=== PATIENT | female | born 1985 | race American Indian/Alaskan Native ===

== ENCOUNTER 2017-05-13 19:48 | Emergency (ER) | payer OTHER ==
[2017-05-13 20:34] VITALS: BP 161/105
--- NOTE | 2017-05-13 20:39 | Emergency Department Report ---
ED Syncope HPI - General Chief Complaint: Syncope Stated Complaint: SYNCOPAL EPISODE Time Seen by Provider: 05/13/17 20:39 Source: patient, family Exam Limitations: no limitations - History of Present Illness Initial Comments: Has a history of chronic migraines, has been recently diagnosed with a sinus infection and bilateral ear infections, has multiple medical problems per history, started to have a migraine today, has not improved. EMS did come to her home due to suspected syncopal episodes associated with her migraines. She reports that she was at [facility] recently for the same symptoms and was given IV fluids and medications and this helped her. Admits to N, V x2. Timing/Prior Episodes: single episode today Precipitating Factors: Positive: none Loss of Consciousness: no loss of consciousness Current Symptoms: headache, lightheadedness, nausea, weakness - Related Data Allergies/Adverse Reactions: Allergies acetaminophen [From Percocet] Allergy (Verified 05/13/17 20:43) Hives chocolate flavor Allergy (Verified 05/13/17 20:43) Hives haloperidol [From Haldol] Allergy (Verified 05/13/17 20:43) Hives nut - unspecified Allergy (Verified 05/13/17 20:43) Hives oxycodone [From Percocet] Allergy (Verified 05/13/17 20:43) Hives shellfish derived Allergy (Verified 05/13/17 20:43) Hives Home Medications: Ambulatory Orders Promethazine [Phenergan TAB] 25 mg PO Q6HR PRN #30 tab 05/14/17 ED Review of Systems ROS: Stated complaint: SYNCOPAL EPISODE Other details as noted in HPI Comment: All other systems reviewed and negative Constitutional: weakness Eyes: eye pain ENT: ear pain Respiratory: cough Cardiovascular: as per HPI Endocrine: no symptoms reported Gastrointestinal: as per HPI, nausea, vomiting Genitourinary: as per HPI Musculoskeletal: as per HPI Skin: as per HPI Neurological: as per HPI, headache Psychiatric: as per HPI Hematological/Lymphatic: as per HPI ED Past Medical Hx - Social History Substance Use Type: None - Medications Home Medications: Home Medications Medication Instructions Recorded Confirmed Last Taken Type Promethazine [Phenergan TAB] 25 mg PO Q6HR PRN #30 tab 05/14/17 Unknown Rx ED Physical Exam - General Limitations: No Limitations General appearance: alert - Head Head exam: Present: atraumatic - Eye Eye exam: Present: normal appearance, PERRL, EOMI - ENT ENT exam: Present: normal exam - Neck Neck exam: Present: normal inspection - Respiratory Respiratory exam: Present: normal lung sounds bilaterally. Absent: respiratory distress, wheezes - Cardiovascular Cardiovascular Exam: Present: regular rate, normal rhythm - GI/Abdominal GI/Abdominal exam: Present: soft, normal bowel sounds - Rectal Rectal exam: Present: deferred - Extremities Exam Extremities exam: Present: normal inspection - Back Exam Back exam: Present: normal inspection - Neurological Exam Neurological exam: Present: alert, oriented X3 - Psychiatric Psychiatric exam: Present: normal affect - Skin Skin exam: Present: warm, dry, intact ED Course Vital Signs 05/13/17 05/13/17 20:26 22:13 Temperature 99.2 F Pulse Rate 84 Respiratory 16 20 Rate Blood Pressure 161/105 Blood Pressure 161/105 [Right] O2 Sat by Pulse 99 Oximetry - Reevaluation(s) Reevaluation #1: 05/14/17 01:02 Gave fluids, dilaudid, phenergan. 05/14/17 01:46 Re-evaluated, she does feel better, but still has some pain. Will give some more dilaudid, and Rx for phenergan. Offered to admit, she preferred to not do this. ED Medical Decision Making - Lab Data Result diagrams: 05/13/17 21:19 05/13/17 21:19 Critical care attestation.: If time is entered above; I have spent that time in minutes in the direct care of this critically ill patient, excluding procedure time. ED Disposition Clinical Impression: Migraine aura, persistent, with status migrainosus Disposition: -01 TO HOME OR SELFCARE Is pt being admited?: No Does the pt Need Aspirin: No Condition: Stable Instructions: Migraine Headache (ED) Additional Instructions: Rest, fluids, follow up with your doctor, return as needed, take medications as directed. Prescriptions: Promethazine [Phenergan TAB] 25 mg PO Q6HR PRN #30 tab PRN Reason: Nausea Referrals: MART FELIZ MD [Primary Care Provider] - 3-5 Days
[2017-05-13 21:44] LABS: Basophils % (Auto) 0.4 % (0.0-1.8); Eosinophils # (Auto) 0.1 K/mm3 (0.0-0.4); Eosinophils % (Auto) 1.3 % (0.0-4.3); Hematocrit 35.4 % (30.3-42.9); Hemoglobin 11.6 gm/dl (10.1-14.3); Lymphocytes # (Auto) 1.7 K/mm3 (1.2-5.4); Lymphocytes % (Auto) 26.1 % (13.4-35.0); Mean Corpuscular HGB Conc 33 % (30-34); Mean Corpuscular Hemoglobin 28 pg (28-32); Mean Corpuscular Volume 87 fl (79-97); Monocytes # (Auto) 0.5 K/mm3 (0.0-0.8); Monocytes % (Auto) 7.4 % (0.0-7.3); Platelet Count 339 K/mm3 (140-440); Red Blood Count 4.07 M/mm3 (3.65-5.03); Red Cell Distribution Width 13.7 % (13.2-15.2)
[2017-05-13 21:57] LABS: Alanine Aminotransferase 13 units/L (7-56); Albumin 4.1 g/dL (3.9-5); BUN/Creatinine Ratio 15; Blood Urea Nitrogen 9 mg/dL (7-17); Hemolysis Index 8
[2017-05-13 21:58] LABS: Creatine Kinase MB < 1.0 ng/mL (0.0-4.0)
[2017-05-13] MEDS ORDERED: NACL 0.9% 1000 ML 1,000 ML IV ONE (22:56)
[2017-05-13] MEDS ORDERED: DILAUDID IV ONE (22:58)
[2017-05-13] MEDS ORDERED: PHENERGAN PO ONE (23:00)
[2017-05-14] MEDS ORDERED: ZOFRAN IV ONE (01:30)
[2017-05-14] MEDS ORDERED: ZOFRAN ONE (01:32)
[2017-05-14] MEDS ORDERED: DILAUDID IV ONE (01:46)
== END 2017-05-14 02:45 | disposition home or self-care (01) ==
LOC: ED 19:48
DX: G43.109 Migraine with aura, not intractable, without status migrainosus (principal)
CPT/HCPCS: 36415; 80053; 82550; 82553; 83735; 84484; 85025; 93005; 93010; 96361; 96374; 96375; 96376; 99284; J1170; J2405; J7030; Q0169

== ENCOUNTER 2018-11-28 16:44 | Inpatient (IN) | payer OTHER ==
--- NOTE | 2018-11-28 17:00 | Emergency Department Report ---
Blank Doc - Documentation Documentation: This is a 33-year-old female that presents with headache, bilateral weakness. Exam: normal strength to bilateral. no one sided weakness. No stroke symptoms or signs upon exam. This initial assessment/diagnostic orders/clinical plan/treatment(s) is/are subject to change based on patient's health status, clinical progression and re- assessment by fellow clinical providers in the ED. Further treatment and workup at subsequent clinical providers discretion. Patient/guardians urged not to elope from the ED as their condition may be serious if not clinically assessed and managed. Initial orders include: 1- Patient sent to [facility] for further evaluation and treatment 2- labs 3- CT head
--- NOTE | 2018-11-28 17:07 | Emergency Department Report ---
ED General Adult HPI - General Chief complaint: Neuro Symptoms/Deficit Stated complaint: MIGRAINE/NUMBNESS RT SIDE/DIZZY Time Seen by Provider: 11/28/18 16:50 Source: patient, RN notes reviewed, old records reviewed Mode of arrival: Ambulatory Limitations: No Limitations - History of Present Illness Initial comments: This is a 33-year-old female. The patient is not known to this provider previously. She states that she typically follows at the [facility]. He reports a history of antiphospholipid antibody syndrome, on permanent anticoagulation, Lovenox, reports a history of stroke, and 2018, 2017, and also reports a history of chronic migraines. The patient works as a schoolteacher. She states that she is not . She endorses compliance with her Lovenox therapy. She indicates that she stick and Lovenox within the past 12 hours. The patient presents to the ER with a complaint of nontraumatic nonsudden, non-thunderclap headache, occipital, started at approximately 1:00 PM, throbbing in nature, gradually but persistently getting worse, also with a complaint of right-sided facial numbness, V2 V3, right shou lder numbness, and dizziness. The patient reports a fever this morning of 102.3. She denies abdominal pain. She denies chest pain. She denies shortness of breath. She denies urinary symptoms. She denies extremity weakness. She states this feels like her typical chronic complex migraine. However, because of her complaint of numbness, a code stroke was called by nursing team, as per their discretion. In addition, the patient was noted to be walking with a slight limp with her right leg, as per verbal report. 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 -: Gradual Location: head, face, right, upper extremity Quality: aching Consistency: constant Improves with: none Worsens with: none - Related Data Home Medications Medication Instructions Recorded Confirmed Last Taken Aspirin 81 mg PO DAILY 11/28/18 11/28/18 11/28/18 Flonase 1 spray INTRANASAL DAILY 11/28/18 11/28/18 11/28/18 23:00 Lisinopril 5 mg PO DAILY 11/28/18 11/28/18 11/28/18 Lovenox 70 mg SUB-Q BID 11/28/18 11/28/18 11/28/18 Zyrtec 10mg tab 10 mg PO DAILY 11/28/18 11/28/18 11/28/18 metFORMIN 750 mg PO DAILY 11/28/18 11/28/18 11/28/18 Previous Rx's Medication Instructions Recorded Last Taken Type Butalb/Acetamin/Caff 50-325-40 1 each PO Q4H PRN #24 tablet 12/02/18 Unknown Rx [Fioricet 50-325-40] Gabapentin 300 mg PO TID #90 12/02/18 Unknown Rx Hydroxychloroquine [Plaquenil] 400 mg PO QDAY #30 tablet 12/02/18 Unknown Rx Allergies Allergy/AdvReac Type Severity Reaction Status Date / Time chocolate flavor Allergy Hives Verified 05/13/17 20:43 haloperidol [From Haldol] Allergy Hives Verified 05/13/17 20:43 nut - unspecified Allergy Hives Verified 05/13/17 20:43 oxycodone [From Percocet] Allergy Hives Verified 05/13/17 20:43 shellfish derived Allergy Hives Verified 05/13/17 20:43 NSAIDS (Non-Steroidal AdvReac Bleeding Verified 11/29/18 17:11 Anti-Inflamma ED Review of Systems ROS: Stated complaint: MIGRAINE/NUMBNESS RT SIDE/DIZZY Other details as noted in HPI Constitutional: fever Eyes: denies: eye discharge, vision change ENT: denies: epistaxis Respiratory: denies: cough Cardiovascular: denies: chest pain Gastrointestinal: nausea, vomiting, other (patient reports chronic nausea and vomiting "every day.") Genitourinary: denies: dysuria Musculoskeletal: arthralgia, myalgia Skin: denies: rash Neurological: headache, numbness ED Past Medical Hx - Past Medical History Previous Medical History?: Yes Hx Hypertension: Yes Hx CVA: Yes (x2 left sided weakness) Hx Headaches / Migraines: Yes Additional medical history: Lupus. APS - Surgical History Past Surgical History?: No - Social History Substance Use Type: None - Medications Home Medications: Home Medications Medication Instructions Recorded Confirmed Last Taken Type Aspirin 81 mg PO DAILY 11/28/18 11/28/18 11/28/18 History Flonase 1 spray INTRANASAL DAILY 11/28/18 11/28/18 11/28/18 23:00 History Lisinopril 5 mg PO DAILY 11/28/18 11/28/18 11/28/18 History Lovenox 70 mg SUB-Q BID 11/28/18 11/28/18 11/28/18 History Zyrtec 10mg tab 10 mg PO DAILY 11/28/18 11/28/18 11/28/18 History metFORMIN 750 mg PO DAILY 11/28/18 11/28/18 11/28/18 History Butalb/Acetamin/Caff 50-325-40 1 each PO Q4H PRN #24 tablet 12/02/18 Unknown Rx [Fioricet 50-325-40] Gabapentin 300 mg PO TID #90 12/02/18 Unknown Rx Hydroxychloroquine [Plaquenil] 400 mg PO QDAY #30 tablet 12/02/18 Unknown Rx ED Physical Exam - General Limitations: No Limitations General appearance: alert, in no apparent distress - Head Head exam: Present: atraumatic, normocephalic - Eye Eye exam: Present: normal appearance, PERRL, EOMI, other (visual acuity intact to finger counting, color perception, reading at a close distance). Absent: nystagmus - ENT ENT exam: Present: normal exam, normal orophraynx, mucous membranes moist, normal external ear exam - Neck Neck exam: Present: normal inspection, full ROM. Absent: tenderness, meningismus - Respiratory Respiratory exam: Present: normal lung sounds bilaterally. Absent: respiratory distress - Cardiovascular Cardiovascular Exam: Present: regular rate, normal rhythm, normal heart sounds. Absent: bradycardia, tachycardia, irregular rhythm, systolic murmur, diastolic murmur, rubs, gallop - GI/Abdominal GI/Abdominal exam: Present: soft. Absent: distended, tenderness, guarding, rebound, rigid, pulsatile mass - Extremities Exam Extremities exam: Present: normal inspection, full ROM, other (2+ pulses noted in the bilateral upper, lower extremities. Compartments soft. No long bony tenderness. The pelvis is stable.). Absent: pedal edema, joint swelling, calf tenderness - Back Exam Back exam: Present: normal inspection, full ROM. Absent: tenderness, CVA tenderness (R), CVA tenderness (L), paraspinal tenderness, vertebral tenderness - Neurological Exam Neurological exam: Present: alert, oriented X3, other (Extraocular movements intact. Tongue midline. No facial droop. Facial sensation intact to light to uch in the V1, V2, V3 distribution bilaterally. 5 and 5 strength in 4 extremities.. Sensation is intact to light touch in 4 extremities.). Absent: motor sensory deficit - Psychiatric Psychiatric exam: Present: anxious - Skin Skin exam: Present: warm, dry, intact, normal color. Absent: rash ED Course Vital Signs 11/28/18 11/28/18 11/28/18 17:30 18:30 18:36 Temperature Pulse Rate 65 68 61 Respiratory 18 18 20 Rate Blood Pressure 141/87 Blood Pressure 141/57 153/90 [Right] O2 Sat by Pulse 100 100 Oximetry 11/28/18 11/28/18 11/28/18 18:56 19:08 19:15 Temperature Pulse Rate 79 64 Respiratory 18 14 Rate Blood Pressure 141/87 128/85 Blood Pressure [Right] O2 Sat by Pulse 100 99 Oximetry 11/28/18 11/28/18 11/28/18 19:30 19:46 20:00 Temperature Pulse Rate 77 66 63 Respiratory 22 23 22 Rate Blood Pressure 117/90 130/86 132/85 Blood Pressure [Right] O2 Sat by Pulse 100 100 80 L Oximetry 11/28/18 11/29/18 11/29/18 20:15 00:00 00:05 Temperature 98.1 F 98.1 F Pulse Rate 67 68 Respiratory 23 18 18 Rate Blood Pressure 120/71 128/81 Blood Pressure 128/81 [Right] O2 Sat by Pulse 99 98 Oximetry - Reevaluation(s) Reevaluation #1: 11/28/18 17:06 [place] aware 08/04/2018 1 08/04/2018 OXYCODON-ACETAMINOPHEN 7.5-325 12.0 2 FE WAR [id number] [facility] ([id number]) 0 67.5 MME Comm Ins 07/10/2018 1 07/10/2018 VIRTUSSIN AC LIQUID 240.0 6 JE PIR [id number] [facility] ([id number]) 0 12.0 MME Comm Ins 06/21/2018 1 06/21/2018 [id number]-[id number] SYR 236.0 11 AN JESSICA [id number] [facility] ([id number]) 0 Comm Ins 05/30/2018 1 01/12/2018 [id number] SYR 240.0 9 AN JESSICA [id number] [facility] ([id number]) 1 Comm Ins [place] 02/10/2018 1 02/10/2018 ACETAMINOPHEN-COD #3 TABLET 30.0 5 JA RAQUEL [id number] [facility] ([id number]) 0 27.0 MME Comm [facility] 01/29/2018 1 01/21/2018 HYDROCODONE-ACETAMIN 7.5-325 60.0 30 BE HES [id number] [facility] ([id number]) 0 15.0 MME Comm [facility] 01/12/2018 1 01/12/2018 [id number] SYR 240.0 9 AN JESSICA [id number] [facility] ([id number]) 0 Comm [facility] *Pharmacy is created using a combination of pharmacy name and the last four digits of the pharmacy license number. *Per CDC guidance, the MME conversion factors prescribed or provided as part of medication-assisted treatment for opioid use disorder should not be used to benchmark against dosage thresholds meant for opioids prescribed for pain. Buprenorphine products have no agreed upon morphine equivalency, and as partial opioid agonists, are not expected to be associated with overdose risk in the same dose-dependent manner as doses for full agonist opioids. MME = morphine milligram equivalents. mg = dose in milligrams. Prescribers Name Address [facility] State Zip Phone BERNY MITCHELL [address] [facility] [address] [facility] [address] SINCERE AGUSTIN [address] [facility] [address] [place], [address] [facility] [phone] LILO THORNE [address] [facility] [id number] JASON GUERRERO [address] [place] [facility] [phone] Reevaluation #2: 11/28/18 17:50 Differential diagnosis, including not limited to, migraine headache, tension headache, cluster headache, venous sinus thrombosis, arterial thrombosis, intracranial hemorrhage, stroke, seizure, conversion disorder, complex migraine Assessment and plan: 33-year-old female, with reported complex past medical history, including antiphospholipid antibody syndrome, reported stroke 2, on chronic anticoagulation. Patient is not a TPA candidate as she currently has an NIH score of 0, and she is on chronic systemic anticoagulation. Her exam is not consistent with a large vessel occlusion, however, after evaluation by stroke neurology, , and emergent CT angiogram of the head and neck, with venous runoff was recommended. Therefore, we will obtain the aforementioned CT scan, and to the patient's headache. Admission is recommended by stroke neurology. Discussed this plan of care with the patient. Reevaluation #3: 11/28/18 19:36 care will be transferred to Dr You Carlisle to follow up on cta head, neck and reassess Plan to admit this patient to the medical service for neurologic workup and evaluation, if no large vessel occlusion is noted, and no condition is identified that would require transfer to another facility for services not av ailable at this facility. ED Medical Decision Making - Lab Data Result diagrams: 11/28/18 17:26 11/28/18 19:02 Lab Results 11/28/18 Range/Units 16:58 POC Glucose 94 (70-105) - EKG Data -: EKG Interpreted by Me EKG shows normal: sinus rhythm Rate: normal - EKG Data When compared to previous EKG there are: previous EKG unavailable 11/28/18 18:14 This is a normal sinus, 88 bpm, normal axis, QTC 434 ms, motion artifact, EKG is not consistent with ST elevation myocardial infarction, there is no prior EKG available for comparison. [place] appears to be borderline rightward axis. - Radiology Data Radiology results: report reviewed, image reviewed Noncontrast CT scan of the brain is negative for acute disease Critical care attestation.: If time is entered above; I have spent that time in minutes in the direct care of this critically ill patient, excluding procedure time. ED Disposition Clinical Impression: Headache, Facial numbness, Numbness Disposition: -09 OP ADMIT IP TO THIS HOSP Is pt being admited?: Yes Condition: Stable - Assessment Assessment Interval: Baseline - Level of Consciousness 1a. Level of Consciousness: alert/keenly responsive - LOC Questions 1b. LOC Questions: answers both correctly - LOC Command 1c. LOC Commands: performs tasks correctly - Best Gaze 2. Best Gaze: normal - Visual 3. Visual: no visual loss - Facial Palsy 4. Facial Palsy: normal symmetrical movement - Motor Arm 5a. Motor Arm Left: no drift 5b. Motor Arm Right: no drift - Motor Leg 6a. Motor Leg Left: no drift 6b. Motor Leg Right: no drift - Limb Ataxia 7. Limb Ataxia: absent - Sensory 8. Sensory: normal - Best Language 9. Best Language: no aphasia - Dysarthria 10. Dysarthria: normal - Extinction and Inattention 11. Extinction/Inattention: no abnormality - Scoring Total Score: 0 Stroke Severity: No Stroke Symptoms
[2018-11-28] MEDS ORDERED: XYLOCAINE TOPICAL 4% TP ONE (17:21)
[2018-11-28] MEDS ORDERED: REGLAN IV ONE (17:21)
[2018-11-28] MEDS ORDERED: BENADRYL IV ONE (17:21)
--- NOTE | 2018-11-28 17:25 | Cat Scan Report ---
CT head without contrast CLINICAL HISTORY: Cerebrovascular accident FINDINGS: The brain demonstrate appropriate attenuation. The ventricular system is within normal limi ts in size and configuration. There is no CT evidence of acute intracranial hemorrhage or significant mass effect. The visualized paranasal sinuses are clear. All CT scans at this location are performed using the CT dose reduction for ALARA by means of automated exposure control. IMPRESSION: There is no CT evidence of acute intracranial process. The findings were called emergently to the ER at 4:17 PM per the code stroke protocol. Signer Name: Jose Araujo MD Signed: 11/28/2018 5:21 PM Workstation Name: [id number]
[2018-11-28] MEDS ORDERED: NACL 0.9% 500 ML 500 ML IV ONE (17:27)
[2018-11-28 17:52] LABS: Basophils % (Auto) 0.7 % (0.0-1.8); Eosinophils # (Auto) 0.1 K/mm3 (0.0-0.4); Eosinophils % (Auto) 0.9 % (0.0-4.3); Hematocrit 38.1 % (30.3-42.9); Hemoglobin 12.4 gm/dl (10.1-14.3); Lymphocytes # (Auto) 1.8 K/mm3 (1.2-5.4); Lymphocytes % (Auto) 29.5 % (13.4-35.0); Mean Corpuscular HGB Conc 33 % (30-34); Mean Corpuscular Volume 90 fl (79-97); Monocytes # (Auto) 0.4 K/mm3 (0.0-0.8); Platelet Count 324 K/mm3 (140-440); Red Blood Count 4.22 M/mm3 (3.65-5.03); Red Cell Distribution Width 13.4 % (13.2-15.2)
[2018-11-28 18:05] LABS: INR 1.07 (0.87-1.13)
[2018-11-28 18:10] LABS: Partial Thromboplastin Time 32.7 Sec. (24.2-36.6)
[2018-11-28 18:14] LABS: Thrombin Time 16.8 Sec. (15.1-19.6)
[2018-11-28 18:32] LABS: Creatine Kinase MB < 1.0 ng/mL (0.0-4.0)
[2018-11-28 19:53] LABS: BUN/Creatinine Ratio 11; Blood Urea Nitrogen 8 mg/dL (7-17); Calcium 9.2 mg/dL (8.4-10.2); Hemolysis Index 27
[2018-11-28 19:56] LABS: Bilirubin,Urine NEG (Negative); Blood,Urine NEG (Negative); Color,Urine Yellow (Yellow); Mucus,Urine FEW /HPF; Protein,Urine <15 mg/dL mg/dL (Negative); Urobilinogen,Urine < 2.0 mg/dL (<2.0)
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
[2018-11-28] MEDS ORDERED: IBUPROFEN PO PRN (22:57)
[2018-11-28] MEDS ORDERED: SODIUM CHLORIDE FLUSH SYRINGE 10 ML IV PRN (22:57)
[2018-11-28] MEDS ORDERED: SODIUM CHLORIDE FLUSH SYRINGE 10 ML INJ PRN (23:11)
[2018-11-28] MEDS ORDERED: D50W (25GM) Syringe IV PRN (23:14)
[2018-11-28] MEDS ORDERED: APRESOLINE IV PRN (23:15)
--- NOTE | 2018-11-28 23:19 | History and Physical Report ---
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 Pt states that her headache began earlier today around 1 pm. 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 She states that her headache is located in the occipital region, and describes the pain as pressure. The pain is non-radiating and she rates it 8/10. She admits to having fever of 102.3 and took "something: to treat fever. Admits: Fever, headache, right sided facial weakness, right sided neck numbness, and right upper extremity numbness Denies: n/v/d, head injury/ trauma "worst headache of life", thunderclap onset, recent sick exposure, cough, or visual disturbances Past History Past Medical History: hypertension, stroke (x2 left sided residual weakness), other (antiphospholipid antibody syndrome, migraines, PCOS) Past Surgical History: No surgical history Social history: lives with family Family history: no significant family history Medications and Allergies Allergies Allergy/AdvReac Type Severity Reaction Status Date / Time acetaminophen [From Percocet] Allergy Hives Verified 05/13/17 20:43 chocolate flavor Allergy Hives Verified 05/13/17 20:43 haloperidol [From Haldol] Allergy Hives Verified 05/13/17 20:43 nut - unspecified Allergy Hives Verified 05/13/17 20:43 oxycodone [From Percocet] Allergy Hives Verified 05/13/17 20:43 shellfish derived Allergy Hives Verified 05/13/17 20:43 Home Medications Medication Instructions Recorded Confirmed Last Taken Type Aspirin 81 mg PO DAILY 11/28/18 11/28/18 11/28/18 History Flonase 1 spray INTRANASAL DAILY 11/28/18 11/28/18 11/28/18 23:00 History Gabapentin 300 mg PO TID 11/28/18 11/28/1819 History Lisinopril 5 mg PO DAILY 11/28/18 11/28/18 11/28/18 History Lovenox 70 mg SUB-Q BID 11/28/18 11/28/18 11/28/18 History Zyrtec 10mg tab 10 mg PO DAILY 11/28/18 11/28/18 11/28/18 History metFORMIN 750 mg PO DAILY 11/28/18 11/28/18 11/28/18 History Active Meds: Active Medications Atorvastatin Calcium (Lipitor) 40 mg PO QHS MICHELL Dextrose (D50w (25gm) Syringe) 50 ml IV PRN PRN PRN Reason: Hypoglycemia Docusate Sodium (Colace) 100 mg PO BID MICHELL Enoxaparin Sodium (Lovenox) 40 mg SUB-Q QDAY MICHELL Famotidine (Pepcid) 10 mg PO BID MICHELL Hydralazine HCl (Apresoline) 10 mg IV Q4HR PRN PRN Reason: Blood Pressure Sodium Chloride (Nacl 0.9% 1000 Ml) 1,000 mls @ 100 mls/hr IV DIRECT MICHELL Stop: 11/29/18 12:00 Ibuprofen (Ibuprofen) 600 mg PO Q6H PRN PRN Reason: Pain, Mild (1-3), fever>100.5 Insulin Human Regular (Humulin R) 0 units SUB-Q ACHS MICHELL; Protocol Miscellaneous Medication (Aspirin) 81 mg PO DAILY [facility] Miscellaneous Medication (Gabapentin) 300 mg PO TID [facility] Miscellaneous Medication (Metformin) 750 mg PO DAILY [facility] Miscellaneous Medication (Zyrtec 10mg Tab) 10 mg PO DAILY [facility] Morphine Sulfate (Morphine) 2 mg IV Q4H PRN PRN Reason: Pain, Moderate (4-6) Ondansetron HCl (Zofran) 4 mg IV Q8H PRN PRN Reason: Nausea And Vomiting Sodium Chloride (Sodium Chloride Flush Syringe 10 Ml) 10 ml IV PRN PRN PRN Reason: LINE FLUSH Sodium Chloride (Sodium Chloride Flush Syringe 10 Ml) 10 ml INJ PRN PRN PRN Reason: LINE FLUSH Sumatriptan Succinate (Imitrex) 25 mg PO Q2H PRN PRN Reason: Headache Review of Systems All systems: negative (reviewed and no additional remarkable complaints except as noted below) Constitutional: fever (102.3, but was noted to be afebrile on presentation) Neurological: numbness (right side of neck and right upper arm ), headaches (hx migraines), other (numbness to right side of face, residual left sided weakness from previous CVA) Exam - Physical Exam Narrative exam: Physical exam General appearance: Present: Mild discomfort, alert and oriented 3, well- developed, well-nourished adult -[place] female - EENT Eyes: Present: PERRL, EOM intact ENT: hearing intact, normal dentition - Neck Neck: Present: supple, normal ROM - Respiratory Respiratory effort: Non-labored Respiratory: CTA bilaterally - Cardiovascular Heart rate: 88 (bpm) Rhythm: Sinus rhythm Heart Sounds: Present: S1 & S2. Absent: rub, click - Extremities Extremities: no ischemia, pulses intact, abnormal - Peripheral Assessment Peripheral Pulses: within normal limits - Abdominal General gastrointestinal: soft, non-tender, normal bowel sounds - Integumentary Integumentary: Present: warm, dry - Musculoskeletal Musculoskeletal: 4/5 muscle strength related, altered sensation to right side of face, right side of neck, right upper extremity CN II-XII: Grossly intact - Psychiatric Psychiatric: cooperative - Constitutional Vitals: Temp Pulse Resp BP Pulse Ox 79 18 141/87 100 11/28/18 19:08 11/28/18 18:56 11/28/18 19:08 11/28/18 18:56 Results - Labs CBC & Chem 7: 11/28/18 17:26 11/28/18 19:02 Labs: Laboratory Last Values WBC 6.3 K/mm3 (4.5-11.0) 11/28/18 17:26 RBC 4.22 M/mm3 (3.65-5.03) 11/28/18 17:26 Hgb 12.4 gm/dl (10.1-14.3) 11/28/18 17:26 Hct 38.1 % (30.3-42.9) 11/28/18 17:26 MCV 90 fl (79-97) 11/28/18 17:26 MCH 29 pg (28-32) 11/28/18 17:26 MCHC 33 % (30-34) 11/28/18 17:26 RDW 13.4 % (13.2-15.2) 11/28/18 17:26 Plt Count 324 K/mm3 (140-440) 11/28/18 17:26 Lymph % (Auto) 29.5 % (13.4-35.0) 11/28/18 17:26 [place] % (Auto) 6.0 % (0.0-7.3) 11/28/18 17: Eos % (Auto) 0.9 % (0.0-4.3) 11/28/18 17: Baso % (Auto) 0.7 % (0.0-1.8) 11/28/18 17: Lymph # 1.8 K/mm3 (1.2-5.4) 11/28/18 17: [place] # 0.4 K/mm3 (0.0-0.8) 11/28/18 17: Eos # 0.1 K/mm3 (0.0-0.4) 11/28/18 17: Baso # 0.0 K/mm3 (0.0-0.1) 11/28/18 17: Seg Neutrophils % 62.9 % (40.0-70.0) 11/28/18 17: Seg Neutrophils # 3.9 K/mm3 (1.8-7.7) 11/28/18 17:26 PT 13.6 Sec. (12.2-14.9) 11/28/18 17: INR 1.07 (0.87-1.13) 11/28/18 17:26 APTT 32.7 Sec. (24.2-36.6) 11/28/18 17:26 16.8 Sec. (15.1-19.6) 11/28/18 17:26 Sodium 140 mmol/L (137-145) 11/28/18 19:02 Potassium 3.8 mmol/L (3.6-5.0) 11/28/18 19:02 Chloride 104.2 mmol/L (98-107) 11/28/18 19:02 Carbon Dioxide 20 mmol/L (22-30) L 11/28/18 19:02 20 mmol/L 11/28/18 19:02 BUN 8 mg/dL (7-17) 11/28/18 19:02 0.7 mg/dL (0.7-1.2) 11/28/18 19:02 Estimated GFR > 60 ml/min 11/28/18 19:02 11 % 11/28/18 19:02 Glucose 81 mg/dL (65-100) 11/28/18 19:02 POC Glucose 94 (70-105) 11/28/18 16:58 Calcium 9.2 mg/dL (8.4-10.2) 11/28/18 19:02 Magnesium 2.10 mg/dL (1.7-2.3) 11/28/18 17:36 102 units/L (30-135) 11/28/18 17:36 CK-MB (CK-2) < 1.0 ng/mL (0.0-4.0) 11/28/18 17:26 CK-MB (CK-2) Rel Index 0.9 (0-4) 11/28/18 17:26 < 0.010 ng/mL (0.00-0.029) 11/28/18 17:26 HCG, Qual Negative (Negative) 11/28/18 17:26 Yellow (Yellow) 11/28/18 19:38 Slightly-cloudy (Clear) 11/28/18 19:38 7.0 (5.0-7.0) 11/28/18 19:38 Ur Specific [place] 1.016 (1.003-1.030) 11/28/18 19:38 <15 mg/dl mg/dL (Negative) 11/28/18 19:38 Neg mg/dL (Negative) 11/28/18 19:38 20 mg/dL (Negative) 11/28/18 19:38 Neg (Negative) 11/28/18 19:38 Neg (Negative) 11/28/18 19:38 Neg (Negative) 11/28/18 19:38 < 2.0 mg/dL (<2.0) 11/28/18 19:38 Ur Leukocyte Esterase Neg (Negative) 11/28/18 19:38 1.0 /HPF (0.0-6.0) 11/28/18 19:38 3.0 /HPF (0.0-6.0) 11/28/18 19:38 U Epithel Cells (Auto) 20.0 /HPF (0-13.0) H 11/28/18 19:38 Few /HPF 11/28/18 19:38 - Imaging and Cardiology EKG: image reviewed (80 bpm, sinus rhythm) Imaging and Cardiology: CTA Head Brain: Findings: The brain demonstrate appropriate attenuation. The ventricular system is within normal limits in size and configuration. There is no CT evidence of acute intracranial hemorrhage or significant mass effect. The visualized paranasal sinuses are clear. All CT scans at this location are performed using the CT dose reduction for ALARA by means of automated exposure control. Impression: There is no CT evidence of acute intracranial process. CT angiogram Neck: Findings: No abnormalities are seen at the origins of the great vessels. Common carotid arteries, carotid bifurcations and cervical portions of the internal carotid arteries all have normal appearance. There is no indication of atherosclerotic plaque or hemodynamically significant stenosis. There is no indication of carotid dissection. Normal and symmetrical vertebral arteries are present. There is no indication of stenosis along the course of the vertebral arteries. Both vertebral arteries contribute to the basilar artery origin. The patient is alert artery has an un remarkable appearance. The degree of stenosis, if any, is determined utilizing NASCET like criteria. In this case there is no indication of hemodynamically significant stenosis. Evaluation of the nonvascular soft tissue structures reveal no abnormality. There is no indication of cervical lymphadenopathy. No abnormalities are seen along the course of the airway. Visualized portions of the parotid glands and the submandibular salivary glands have a normal rach earance. Thyroid gland has a normal appearance. Evaluation of lung apices reveal no evidence of lung nodule or infiltrate. Evaluation of the cervical spine reveal no significant abnormalities. 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 (tele-neurology) was consulted. Dilshad miles's symptoms began around 1 PM this afternoon and she did not present to the ED until 4-5 hours post onset on symtpoms. Pt is not a candidate for TPA because she is outside the window of treatment. TIA R/O CVA -Initiate stroke protocol -Initiate neuro checks per stroke protocol -CT angiogram neck negative for acute intercranial processes -CT Head negative for acute intracranial hemorrhage or significant mass effect -EKG revealed for acute ischemic abnormalities -Hx CVA x2 ( 2017 & 2018) with left sided residual weakness -Continue ASA -Start Statin -MRI brain and echocardiogram pending -Hydrate with IV per tele-neurology recs -Neurology consulted -PT/OT eval pending HTN -Patient has history of hypertension -Will hold all home antihypertensive meds for now -Giving current condition will allow for permissive hypertension -IV hydralazine for SBP >200 or DBP > 110 as needed Migraine -History of migraine headaches -Occipital headache, -Start sumatriptan Antiphospholipid antibody syndrome -Currently on systemic anticoagulation (Lovenox) -Continue to monitor coags Polycystic ovarian syndrome -Currently on metformin -Daily POC BG DVT PPX -On Lovenox -On SCD's Advance Directives: No VTE prophylaxis?: Chemical, Mechanical Plan of care discussed with patient/family: Yes
[2018-11-28] MEDS ORDERED: MORPHINE ONE (23:35)
[2018-11-28] MEDS: MORPHINE IV PRN (23:37)
[2018-11-28] MEDS ORDERED: NACL 0.9% 1000 ML 1,000 ML IV SCH (23:45)
[2018-11-29] MEDS: ZOFRAN IV PRN ×3 (00:45→19:48)
[2018-11-29] MEDS ORDERED: ZOFRAN ONE ×2 (00:46→08:00)
[2018-11-29] MEDS: IMITREX PO PRN ×2 (01:08→10:21)
[2018-11-29 03:52] LABS: Chol/HDL Ratio 2.67 %
[2018-11-29] MEDS ORDERED: NACL 0.9% 1000 ML 1,000 ML ONE (04:14)
[2018-11-29] MEDS ORDERED: HumuLIN R SUB-Q SCH (07:30)
[2018-11-29] MEDS ORDERED: LOVENOX SUB-Q SCH (10:00)
[2018-11-29] MEDS ORDERED: ASPIRIN PO SCH (10:00)
--- NOTE | 2018-11-29 10:04 | Cat Scan Report ---
CTA neck with intravenous contrast material. CLINICAL HISTORY: CVA SYMPTOMS--> DO angio then venogram TECHNIQUE: Following acquisition of a timing bolus 0.625 mm thick contiguous axial scans were obtained from aort ic arch to the skull base during rapid bolus intravenous contrast infusion. In addition to evaluation of axial source images multiplanar reconstructions were produced and reviewed for this report. 3 consuelo ne MIP reconstructions were produced and reviewed for this report. FINDINGS: No abnormalities are seen at the origins of the great vessels. Common carotid arteries, carotid bifurcations and cervical portions of the internal carotid arteries all have a normal appearance. There is no indication of atherosclerotic plaque or hemodynamically sig nificant stenosis. There is no indication of carotid dissection. Normal and symmetrical vertebral arteries are present. There is no indication of stenosis along the c ourse of the vertebral arteries. Both vertebral arteries contribute to the basilar artery origin. The basilar artery has an unremarkable appearance. The degree of stenosis, if any, is determined utilizing NASCET like criteria. In this case there is no indication of hemodynamically significant stenosis. Evaluation of the nonvascular soft tissue structures reveal no abnormality. There is no indication of cervical lymphadenopathy. No abnormalities are seen along the course of the airway. Visualized porti ons of the parotid glands and the submandibular salivary glands have a normal appearance. Thyroid gla nd has a normal appearance. Evaluation of the lung apices reveals no evidence of lung nodule or infil trate. Evaluation of the cervical spine revealed no significant abnormalities. IMPRESSION: 1. Normal CTA neck. Contrast dose report: Omnipaque 350: 100 ml, administered intravenously All CT examinations performed at this facility utilize modulated dose reduction, iterative reconstruc tion or weight-based dosing, as appropriate, to obtain a radiation dose which is as low as can reason ably be achieved. Signer Name: Renny Deras MD Signed: 11/28/2018 9:47 PM Workstation Name: [id number]
--- NOTE | 2018-11-29 10:04 | Cat Scan Report ---
CTA head with intravenous contrast CLINICAL HISTORY: CVA SYMPTOMS TECHNIQUE: 1.25 mm thick contiguous axial scans were obtained from the skull base to the skull vertex during rap id bolus administration of intravenous contrast material. Multiplanar reconstructions were produced i n the coronal and sagittal planes. In addition 3 plane MIP instructions were produced and reviewed fo r this report. The axial source images and reconstructed images were reviewed for this report. All CT scans at this location are performed using CT dose reduction for ALARA by means of automated e xposure control. FINDINGS: The caliber of the intracranial vessels is normal throughout. There is no indication of intracranial stenosis or large vessel occlusion. There is no indication of vasculitis. There is no evidence of aneurysm or other vascular malformation. The dural sinuses are well visualized on this examination. There is no indication of dural sinus thro mbosis. Superior sagittal sinus, straight sinus, transverse sinuses, sigmoid sinuses and proximal int ernal jugular veins have an unremarkable appearance. Internal cerebral veins and vein of Ousmane have a normal appearance. IMPRESSION: No abnormalities are identified on CTA head. CONTRAST DOSE REPORT: Omnipaque 350: 100 ml administered intravenously. Signer Name: Renny Deras MD Signed: 11/28/2018 10:05 PM Workstation Name: [id number]
[2018-11-29] MEDS: PEPCID PO SCH (10:39)
[2018-11-29] MEDS: LOVENOX SUB-Q SCH (10:39)
[2018-11-29] MEDS: GLUCOPHAGE PO SCH (10:40)
[2018-11-29] MEDS: BABY ASPIRIN PO SCH (10:40)
[2018-11-29] MEDS: CLARITIN PO SCH (10:40)
[2018-11-29] MEDS: NEURONTIN PO SCH ×2 (10:45→13:29)
[2018-11-29] MEDS: COLACE PO SCH (10:45)
--- NOTE | 2018-11-29 11:34 | Magnetic Resonance Report ---
MRI BRAIN WITHOUT CONTRAST HISTORY: Stroke, TIA, migraines, right-sided weakness TECHNIQUE: Multisequence, multiplanar MRI without IV gadolinium. COMPARISON: CT head dated 11/28/2018. FINDINGS: The brain parenchyma signal intensity and its sun-white interface are normal on all sequences. No ev idence for acute ischemia, hemorrhage, mass, chronic infarct or extra-axial fluid collection. Ventric ular size is normal. The basal cisterns are patent. The posterior fossa and contents are within galen l limits. Orbital cavities and contents are unremarkable. The visualized paranasal sinuses and mastoid air cell s are well-aerated. Normal osseous and soft tissues. IMPRESSION: Unremarkable MRI brain. Signer Name: Hi Alvarado Jr, MD Signed: 11/29/2018 11:30 AM Workstation Name: [id number]
--- NOTE | 2018-11-29 11:53 | Consultation ---
Past History Past Medical History: hypertension, stroke (x2 left sided residual weakness), other (antiphospholipid antibody syndrome, migraines, PCOS) Past Surgical History: No surgical history Social history: lives with family Family history: no significant family history Medications and Allergies Allergies Allergy/AdvReac Type Severity Reaction Status Date / Time acetaminophen [From Percocet] Allergy Hives Verified 05/13/17 20:43 chocolate flavor Allergy Hives Verified 05/13/17 20:43 haloperidol [From Haldol] Allergy Hives Verified 05/13/17 20:43 nut - unspecified Allergy Hives Verified 05/13/17 20:43 oxycodone [From Percocet] Allergy Hives Verified 05/13/17 20:43 shellfish derived Allergy Hives Verified 05/13/17 20:43 Home Medications Medication Instructions Recorded Confirmed Last Taken Type Aspirin 81 mg PO DAILY 11/28/18 11/28/18 11/28/18 History Flonase 1 spray INTRANASAL DAILY 11/28/18 11/28/18 11/28/18 23:00 History Gabapentin 300 mg PO TID 11/28/18 11/28/18 11/28/18 History Lisinopril 5 mg PO DAILY 11/28/18 11/28/18 11/28/18 History Lovenox 70 mg SUB-Q BID 11/28/18 11/28/18 11/28/18 History Zyrtec 10mg tab 10 mg PO DAILY 11/28/18 11/28/18 11/28/18 History metFORMIN 750 mg PO DAILY 11/28/18 11/28/18 11/28/18 History Active Meds: Active Medications Aspirin (Baby Aspirin) 81 mg PO DAILY [facility] Last Admin: 11/29/18 10:40 Dose: 81 mg Documented by: Atorvastatin Calcium (Lipitor) 40 mg PO QHS [facility] Dextrose (D50w (25gm) Syringe) 50 ml IV PRN PRN PRN Reason: Hypoglycemia Docusate Sodium (Colace) 100 mg PO BID [facility] Last Admin: 11/29/18 10:45 Dose: 100 mg Documented by: Enoxaparin Sodium (Lovenox) 70 mg SUB-Q BID [facility] Last Admin: 11/29/18 10:39 Dose: 70 mg Documented by: Famotidine (Pepcid) 10 mg PO BID [facility] Last Admin: 11/29/18 10:39 Dose: 10 mg Documented by: Fluticasone Propionate (Flonase) 50 mcg NS DAILY [facility] Gabapentin (Neurontin) 300 mg PO TID [facility] Last Admin: 11/29/18 10:45 Dose: 300 mg Documented by: Hydralazine HCl (Apresoline) 10 mg IV Q4H PRN PRN Reason: Blood Pressure Sodium Chloride (Nacl 0.9% 1000 Ml) 1,000 mls @ 100 mls/hr IV DIRECT MICHELL Stop: 11/29/18 12:00 Last Admin: 11/29/18 04:00 Dose: 100 mls/hr Documented by: Ibuprofen (Ibuprofen) 600 mg PO Q6H PRN PRN Reason: Pain, Mild (1-3), fever>100.5 Loratadine (Claritin) 10 mg PO DAILY [facility] Last Admin: 11/29/18 10:40 Dose: 10 mg Documented by: Metformin HCl (Glucophage) 750 mg PO QDDIAB [facility] Last Admin: 11/29/18 10:40 Dose: 750 mg Documented by: Morphine Sulfate (Morphine) 2 mg IV Q4H PRN PRN Reason: Pain, Moderate (4-6) Last Admin: 11/28/18 23:37 Dose: 2 mg Documented by: Ondansetron HCl (Zofran) 4 mg IV Q8H PRN PRN Reason: Nausea And Vomiting Last Admin: 11/29/18 10:22 Dose: 4 mg Documented by: Sodium Chloride (Sodium Chloride Flush Syringe 10 Ml) 10 ml IV PRN PRN PRN Reason: LINE FLUSH Physical Examination - Vital Signs Vital Signs: Vital Signs Pulse Resp BP Pulse Ox 65 18 141/57 100 11/28/18 17:30 11/28/18 17:30 11/28/18 17:30 11/28/18 17:30 Results - Laboratory Findings CBC and BMP: 11/28/18 17:26 11/28/18 19:02 Abnormal Lab Findings: Abnormal Labs 11/28/18 11/28/18 19:02 19:38 Carbon Dioxide 20 L U Epithel Cells (Auto) 20.0 H
--- NOTE | 2018-11-29 13:27 | Consultation ---
Past History Past Medical History: hypertension, stroke (x2 left sided residual weakness), other (antiphospholipid antibody syndrome, migraines, PCOS) Past Surgical History: No surgical history Social history: lives with family Family history: no significant family history Medications and Allergies Allergies Allergy/AdvReac Type Severity Reaction Status Date / Time acetaminophen [From Percocet] Allergy Hives Verified 05/13/17 20:43 chocolate flavor Allergy Hives Verified 05/13/17 20:43 haloperidol [From Haldol] Allergy Hives Verified 05/13/17 20:43 nut - unspecified Allergy Hives Verified 05/13/17 20:43 oxycodone [From Percocet] Allergy Hives Verified 05/13/17 20:43 shellfish derived Allergy Hives Verified 05/13/17 20:43 Home Medications Medication Instructions Recorded Confirmed Last Taken Type Aspirin 81 mg PO DAILY 11/28/18 11/28/18 11/28/18 History Flonase 1 spray INTRANASAL DAILY 11/28/18 11/28/18 11/28/18 23:00 History Gabapentin 300 mg PO TID 11/28/18 11/28/18 11/28/18 History Lisinopril 5 mg PO DAILY 11/28/18 11/28/18 11/28/18 History Lovenox 70 mg SUB-Q BID 11/28/18 11/28/18 11/28/18 History Zyrtec 10mg tab 10 mg PO DAILY 11/28/18 11/28/18 11/28/18 History metFORMIN 750 mg PO DAILY 11/28/18 11/28/18 11/28/18 History Active Meds: Active Medications Aspirin (Baby Aspirin) 81 mg PO DAILY [facility]AC[facility] BY [facility] Last Admin: 11/29/18 10:40 Dose: 81 mg Documented by: Atorvastatin Calcium (Lipitor) 40 mg PO QHS [facility]PLACED BY [facility] Dextrose (D50w (25gm) Syringe) 50 ml IV PRN PRN PRN Reason: Hypoglycemia Docusate Sodium (Colace) 100 mg PO BID [facility] Last Admin: 11/29/18 10:45 Dose: 100 mg Documented by: Enoxaparin Sodium (Lovenox) 70 mg SUB-Q BID [facility]PL[facility] BY [facility] Last Admin: 11/29/18 10:39 Dose: 70 mg Documented by: Famotidine (Pepcid) 10 mg PO BID [facility]PL[facility] BY [facility] Last Admin: 11/29/18 10:39 Dose: 10 mg Documented by: Fluticasone Propionate (Flonase) 50 mcg NS DAILY [facility]PLACED BY [facility] Gabapentin (Neurontin) 300 mg PO TID [facility]PLACED BY [facility] Last Admin: 11/29/18 10:45 Dose: 300 mg Documented by: Hydralazine HCl (Apresoline) 10 mg IV Q4H PRN PRN Reason: Blood Pressure Ibuprofen (Ibuprofen) 600 mg PO Q6H PRN PRN Reason: Pain, Mild (1-3), fever>100.5 Loratadine (Claritin) 10 mg PO DAILY [facility]PLACED BY [facility] Last Admin: 11/29/18 10:40 Dose: 10 mg Documented by: Metformin HCl (Glucophage) 750 mg PO QDDIAB REPLACED BY [facility] Last Admin: 11/29/18 10:40 Dose: 750 mg Documented by: Morphine Sulfate (Morphine) 2 mg IV Q4H PRN PRN Reason: Pain, Moderate (4-6) Last Admin: 11/28/18 23:37 Dose: 2 mg Documented by: Ondansetron HCl (Zofran) 4 mg IV Q8H PRN PRN Reason: Nausea And Vomiting Last Admin: 11/29/18 10:22 Dose: 4 mg Documented by: Sodium Chloride (Sodium Chloride Flush Syringe 10 Ml) 10 ml IV PRN PRN PRN Reason: LINE FLUSH Physical Examination - Vital Signs Vital Signs: Vital Signs Pulse Resp BP Pulse Ox 65 18 141/57 100 11/28/18 17:30 11/28/18 17:30 11/28/18 17:30 11/28/18 17:30 Results - Laboratory Findings CBC and BMP: 11/28/18 17:26 11/28/18 19:02 Abnormal Lab Findings: Abnormal Labs 11/28/18 11/28/18 19:02 19:38 Carbon Dioxide 20 L U Epithel Cells (Auto) 20.0 H Assessment and Plan Neurology consult report of Ms. Howe is a 33-year-old female with history of anti-phospholipid antibody syndrome who has been taking Lovenox 70 mg SQ twice a day and an aspirating taking 1 mg once a day, who has also two episodes of reported stroke one in 2017 and another in 2018, left hemiparesis on both times, came to the emergency room on 11/28/2018 because of neck pain and stiffness associated with numbness of the right upper extremity. Patient also complained of tingling sensation on the back of the head and numbness on the right face with associated photophobia and sonophobia. Patient has history of migraine complex and patient reported the symptoms to be like typical migraine complex. However numbness on the right upper extremity raised the issue of stroke for which she was admitted. Workup including CT scan of the head and MRI of the brain and CT angiogram was reviewed by me and I did not see any abnormality. Blood work was also unremarkable. Physical examination. General. Patient is alert and appropriate, has insight into her problems and answers questions appropriately. She admits to ongoing significant psychosocial stress from school from trying to complete [employer] program as well as working as a schoolteacher and also chronic pain from back injury when she was in the service from disc injuries status post surgery. Heart. Normal rate and rhythm. Carotids. Both are palpable, no bruit. Cranial nerves. Normal fascial weakness, extra ocular movement is intact. Decreased sensation to pinprick. On the right V2 and V3 distribution of trigeminal nerve. Motor. Weak right deltoid, right biceps and right triceps muscles. Increased stiffness on cervical paraspinal muscles more so on the right side than the left. Muscle tone is decreased on the right upper extremity. Moses continue muscles bilaterally. Sensory. Decreased sensation to pinprick on the right C5, C6, and C7 dermatomes Reflexes. Decreased right biceps, right triceps and right brachioradialis reflexes as compared to the left. Impression. #1 patient does not have a stroke. However numbness on the right upper extremity is due to multiple cervical radiculopathy involving right C5, C6, C7 no groups probably from disc protrusion and foraminal stenosis from degenerative joint disease/facet arthropathy. #2 she also has tension type headache in addition to migraine complex. Recommendation. #1 please start her on acetaminophen 500 mg +65 mg by mouth 3 times a day for one day then reduce to twice a day for another 2 days and then as needed #2 please get MRI of the cervical spine to look for disc protrusion or other pathology. #3 continue sumatriptan 50 mg at headache onset for migraine complex #4 further recommendations to follow after MRI of the cervical spine is done
[2018-11-29] MEDS: FLONASE NS SCH (13:29)
[2018-11-29] MEDS: MORPHINE IV PRN (13:36)
--- NOTE | 2018-11-29 14:28 | Progress Note ---
Assessment and Plan Assessment and plan: Patient is 33-year-old -[place] woman with history of CVA 2 (2017 & 2018) with left-sided residual weakness, antiphospholipid antibody syndrome on Lovenox 70 mg SQ twice a day and Aspirin, migraine headaches and PCOS who presents to [facility] ED with complaints of right shoulder numbness, right sided neck numbness, right upper extremity numbness, and occipital headache. (tele-neurology) was consulted. Pt is not a candidate for TPA because she is outside the window of treatment. * CTA Head Brain Impression: There is no CT evidence of acute intracranial process. * CT angiogram Neck Impression: Normal CTA neck * Brain MRI without contrast IMPRESSION: Unremarkable MRI brain. Right shoulder pains, ruled out TIA/CVA, most likely cervical radiculopathy involving right C5, C6, C7: order MRI neck Migraine Headaches: treat with Imitrex Hypertension: low salt diet, treat with antihypertensives Antiphospholipid antibody syndrome-Currently on systemic anticoagulation (Lovenox)-Continue to monitor coags Polycystic ovarian syndrome-Currently on metformin-Daily POC BG DVT PPX-sq lovenox Disposition: continue inpatient care, MRI neck pending History Interval history: Patient was seen and examined. Follow-up on current diagnosis of right shoulder pains and headaches. No overnight events reported to me. Patient denies any chest pain, shortness breath, nausea/vomiting. Imaging, nursing note, chart, labs and old chart reviewed. Discussed with patient. Hospitalist Physical - Physical exam Narrative exam: Gen: WDWN, NAD, Awake, Alert, Orientated HEENT: NCAT, EOMI, PERRL, OP Clear Neck: supple, no adenopathy, no thyromegaly, no JVD CVS/Heart: RRR, normal S1S2, pulses present bilaterally Chest/Lungs: CTA B, Symmetrical chest expansion, good air entry bilaterally GI/Abdomen: soft, NTND, good bowel sounds, no guarding or rebound /Bladder: no suprapubic tenderness, no CVA or paraspinal tenderness Extermity/Skin: no c/c/e, no obvious rash Neuro: CN 2-12 grossly intact with some sensory deficits, new right sided muscle weakness, per Neurology: Cranial nerves. Normal fascial weakness, extra ocular movement is intact. Decreased sensation to pinprick. On the right V2 and V3 distribution of trigeminal nerve. Motor. Weak right deltoid, right biceps and right triceps muscles. Increased stiffness on cervical paraspinal muscles more so on the right side than the left. Muscle tone is decreased on the right upper extremity. Moses continue muscles bilaterally. Sensory. Decreased sensation to pinprick on the right C5, C6, and C7 dermatomes, Reflexes. Decreased right biceps, right triceps and right bra chioradialis reflexes as compared to the left. Psych: calm - Constitutional Vitals: Temp Pulse Resp BP Pulse Ox 98.5 F 75 20 122/102 95 11/29/18 13:02 11/29/18 13:02 11/29/18 13:02 11/29/18 13:02 11/29/18 13:39 Results - Labs CBC & Chem 7: 11/28/18 17:26 11/28/18 19:02 Labs: Laboratory Last Values WBC 6.3 K/mm3 (4.5-11.0) 11/28/18 17:26 RBC 4.22 M/mm3 (3.65-5.03) 11/28/18 17:26 Hgb 12.4 gm/dl (10.1-14.3) 11/28/18 17:26 Hct 38.1 % (30.3-42.9) 11/28/18 17:26 MCV 90 fl (79-97) 11/28/18 17:26 MCH 29 pg (28-32) 11/28/18 17:26 MCHC 33 % (30-34) 11/28/18 17:26 RDW 13.4 % (13.2-15.2) 11/28/18 17:26 Plt Count 324 K/mm3 (140-440) 11/28/18 17:26 Lymph % (Auto) 29.5 % (13.4-35.0) 11/28/18 17:26 Tyler % (Auto) 6.0 % (0.0-7.3) 11/28/18 17:26 Eos % (Auto) 0.9 % (0.0-4.3) 11/28/18 17:26 Baso % (Auto) 0.7 % (0.0-1.8) 11/28/18 17:26 Lymph # 1.8 K/mm3 (1.2-5.4) 11/28/18 17:26 Tyler # 0.4 K/mm3 (0.0-0.8) 11/28/18 17:26 Eos # 0.1 K/mm3 (0.0-0.4) 11/28/18 17:26 Baso # 0.0 K/mm3 (0.0-0.1) 11/28/18 17:26 Seg Neutrophils % 62.9 % (40.0-70.0) 11/28/18 17:26 Seg Neutrophils # 3.9 K/mm3 (1.8-7.7) 11/28/18 17:26 PT 13.6 Sec. (12.2-14.9) 11/28/18 17: INR 1.07 (0.87-1.13) 11/28/18 17: APTT 32.7 Sec. (24.2-36.6) 11/28/18 17:26 16.8 Sec. (15.1-19.6) 11/28/18 17:26 Sodium 140 mmol/L (137-145) 11/28/18 19:02 Potassium 3.8 mmol/L (3.6-5.0) 11/28/18 19:02 Chloride 104.2 mmol/L (98-107) 11/28/18 19:02 Carbon Dioxide 20 mmol/L (22-30) L 11/28/18 19:02 20 mmol/L 11/28/18 19:02 BUN 8 mg/dL (7-17) 11/28/18 19:02 0.7 mg/dL (0.7-1.2) 11/28/18 19:02 Estimated GFR > 60 ml/min 11/28/18 19:02 11 % 11/28/18 19:02 Glucose 81 mg/dL (65-100) 11/28/18 19:02 POC Glucose 94 (70-105) 11/28/18 16:58 5.1 % (4-6) 11/29/18 01:03 Calcium 9.2 mg/dL (8.4-10.2) 11/28/18 19:02 Magnesium 2.10 mg/dL (1.7-2.3) 11/28/18 17:36 102 units/L (30-135) 11/28/18 17:36 CK-MB (CK-2) < 1.0 ng/mL (0.0-4.0) 11/28/18 17:26 CK-MB (CK-2) Rel Index 0.9 (0-4) 11/28/18 17:26 < 0.010 ng/mL (0.00-0.029) 11/28/18 17:26 Triglycerides 108 mg/dL (2-149) 11/29/18 03:12 Cholesterol 147 mg/dL (50-199) 11/29/18 03:12 89 mg/dL (50-130) 11/29/18 03:12 55 mg/dL (40-59) 11/29/18 03:12 2.67 % 11/29/18 03:12 HCG, Qual Negative (Negative) 11/28/18 17:26 Yellow (Yellow) 11/28/18 19:38 Slightly-cloudy (Clear) 11/28/18 19:38 7.0 (5.0-7.0) 11/28/18 19:38 Ur Specific Dillon 1.016 (1.003-1.030) 11/28/18 19:38 <15 mg/dl mg/dL (Negative) 11/28/18 19:38 Neg mg/dL (Negative) 11/28/18 19:38 20 mg/dL (Negative) 11/28/18 19:38 Neg (Negative) 11/28/18 19:38 Neg (Negative) 11/28/18 19:38 Neg (Negative) 11/28/18 19:38 < 2.0 mg/dL (<2.0) 11/28/18 19:38 Ur Leukocyte Esterase Neg (Negative) 11/28/18 19:38 1.0 /HPF (0.0-6.0) 11/28/18 19:38 3.0 /HPF (0.0-6.0) 11/28/18 19:38 U Epithel Cells (Auto) 20.0 /HPF (0-13.0) H 11/28/18 19:38 Few /HPF 11/28/18 19:38 Active Medications - Current Medications Current Medications: Generic Name Dose Route Start Last Admin Trade Name Freq PRN Reason Stop Dose Admin Aspirin 81 mg 11/29/18 10:00 11/29/18 10:40 Baby Aspirin PO 81 mg DAILY MICHELL Administration Atorvastatin Calcium 40 mg 11/29/18 22:00 Lipitor PO QHS MICHELL Dextrose 50 ml 11/28/18 23:14 D50w (25gm) Syringe IV PRN PRN Hypoglycemia Docusate Sodium 100 mg 11/29/18 10:00 11/29/18 10:45 Colace PO 100 mg BID MICHELL Administration Enoxaparin Sodium 70 mg 11/29/18 10:00 11/29/18 10:39 Lovenox SUB-Q 70 mg BID MICHELL Administration Famotidine 10 mg 11/29/18 10:00 11/29/18 10:39 Pepcid PO 10 mg BID [facility] Administration Fluticasone Propionate 50 mcg 11/29/18 10:00 11/29/18 13:29 Flonase NS 50 mcg DAILY [facility] Administration Gabapentin 300 mg 11/29/18 08:00 11/29/18 13:29 Neurontin PO 300 mg TID MICHELL Administration Hydralazine HCl 10 mg 11/28/18 23:15 Apresoline IV Q4H PRN Blood Pressure Ibuprofen 600 mg 11/28/18 22:57 Ibuprofen PO Q6H PRN Pain, Mild (1-3), fever>100.5 Loratadine 10 mg 11/29/18 10:00 11/29/18 10:40 Claritin PO 10 mg DAILY [facility] Administration Metformin HCl 750 mg 11/29/18 08:00 11/29/18 10:40 Glucophage PO 750 mg QDDIAB [facility] Administration Morphine Sulfate 2 mg 11/28/18 22:57 11/29/18 13:36 Morphine IV 2 mg Q4H PRN Administration Pain, Moderate (4-6) Ondansetron HCl 4 mg 11/28/18 22:57 11/29/18 10:22 Zofran IV 4 mg Q8H PRN Administration Nausea And Vomiting Sodium Chloride 10 ml 11/28/18 22:57 Sodium Chloride Flush Syringe 10 Ml IV PRN PRN LINE FLUSH
[2018-11-29] MEDS: FLEXERIL PO PRN ×2 (16:42→16:44)
[2018-11-29] MEDS: TYLENOL PO PRN (17:09)
[2018-11-29] MEDS ORDERED: IBUPROFEN PO PRN (18:00)
--- NOTE | 2018-11-29 18:30 | Magnetic Resonance Report ---
MRI CERVICAL SPINE WITHOUT CONTRAST INDICATION / CLINICAL INFORMATION: Neck pain radiating towards the right. History of lupus. TECHNIQUE: Multisequence, multiplanar images of the cervical spine were obtained. COMPARISON: CTA neck 11/28/2018 FINDINGS: CRANIOCERVICAL JUNCTION:No significant abnormality. ALIGNMENT: Loss of the normal cervical lordosis is noted. This may be secondary to patient positionin g. No additional abnormalities of alignment are identified. VERTEBRAE:Normal marrow signal and vertebral body height for age. VISUALIZED SPINAL CORD: No intrinsic cord lesions are identified. There is no indication of cord comp ression. [id number] ANALYSIS: C2-3: No significant disc abnormality, spinal canal stenosis, or neural foraminal stenosis. C3-4: No significant disc abnormality, spinal canal stenosis, or neural foraminal stenosis. C4-5: No significant disc abnormality, spinal canal stenosis, or neural foraminal stenosis. C5-6: No significant disc abnormality, spinal canal stenosis, or neural foraminal stenosis. C6-7: No significant disc abnormality, spinal canal stenosis, or neural foraminal stenosis. C7-T1: No significant disc abnormality, spinal canal stenosis, or neural foraminal stenosis. PARASPINAL SOFT TISSUES: No significant abnormality. IMPRESSION: 1. No indication of disc herniation, central canal stenosis or significant neuroforaminal narrowing. Signer Name: Renny Deras MD Signed: 11/29/2018 6:25 PM Workstation Name: [id number]
[2018-11-30] MEDS: IMITREX PO PRN ×2 (00:20→02:50)
[2018-11-30] MEDS: PEPCID PO SCH ×3 (00:20→21:46)
[2018-11-30] MEDS: LOVENOX SUB-Q SCH ×3 (00:20→21:46)
[2018-11-30] MEDS: COLACE PO SCH ×3 (00:21→21:47)
[2018-11-30] MEDS: NEURONTIN PO SCH ×4 (00:21→21:46)
[2018-11-30] MEDS: GLUCOPHAGE PO SCH (09:14)
[2018-11-30] MEDS: TYLENOL PO PRN (09:22)
[2018-11-30] MEDS: BABY ASPIRIN PO SCH (09:33)
[2018-11-30] MEDS: CLARITIN PO SCH (09:33)
[2018-11-30] MEDS: FLONASE NS SCH (09:34)
[2018-11-30] MEDS ORDERED: IBUPROFEN PO ONE (15:49)
--- NOTE | 2018-11-30 15:56 | Progress Note ---
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 (tele-neurology) was consulted. Pt is not a candidate for TPA because she is outside the window of treatment. * CTA Head Brain Impression: There is no CT evidence of acute intracranial process. * CT angiogram Neck Impression: Normal CTA neck * Brain MRI without contrast IMPRESSION: Unremarkable MRI brain. * MRI c-spine without contrast Impression: No indication of disc herniation, central canal stenosis or significant neuroforaminal narrowing. Status Migrainous Headaches: treat with Imitrex + iv steroid as NSAIDs may worsen bleeding with therapeutic Lovenox Right shoulder pains, ruled out TIA/CVA, most likely cervical radiculopathy involving right C5, C6, C7: order MRI neck==>no impringement Hypertension: low salt diet, treat with antihypertensives Antiphospholipid antibody syndrome-Currently on systemic anticoagulation (Lovenox)-Continue to monitor coags Polycystic ovarian syndrome-Currently on metformin-Daily POC BG DVT PPX-sq lovenox Disposition: continue inpatient care, once headaches improves then d/c home, hopefully d/c tomorrow History Interval history: Patient was seen and examined. Follow-up on current diagnosis of Migraines. No overnight events reported to me. Patient denies any chest pain, shortness breath. Imaging, nursing note, chart, labs and old chart reviewed. Discussed with patient. Still with severe migraine type headaches. Hospitalist Physical - Physical exam Narrative exam: Gen: WDWN, NAD, Awake, Alert, Orientated HEENT: NCAT, EOMI, PERRL, OP Clear Neck: supple, no adenopathy, no thyromegaly, no JVD CVS/Heart: RRR, normal S1S2, pulses present bilaterally Chest/Lungs: CTA B, Symmetrical chest expansion, good air entry bilaterally GI/Abdomen: soft, NTND, good bowel sounds, no guarding or rebound /Bladder: no suprapubic tenderness, no CVA or paraspinal tenderness Extermity/Skin: no c/c/e, no obvious rash Neuro: CN 2-12 grossly intact with some sensory deficits, new right sided muscle weakness, per Neurology: Cranial nerves. Normal fascial weakness, extra ocular movement is intact. Decreased sensation to pinprick. On the right V2 and V3 distribution of trigeminal nerve. Motor. Weak right deltoid, right biceps and right triceps muscles. Increased stiffness on cervical paraspinal muscles more so on the right side than the left. Muscle tone is decreased on the right upper extremity. Moses continue muscles bilaterally. Sensory. Decreased sensation to pinprick on the right C5, C6, and C7 dermatomes, Reflexes. Decreased right biceps, right triceps and right brachioradialis reflexes as compared to the left. Psych: calm - Constitutional Vitals: Temp Pulse Resp BP Pulse Ox 98.2 F 65 18 140/94 99 11/30/18 12:18 11/30/18 09:48 11/30/18 12:18 11/30/18 12:18 11/30/18 03:23 Results - Labs CBC & Chem 7: 11/28/18 17:26 11/28/18 19:02 Labs: Laboratory Last Values WBC 6.3 K/mm3 (4.5-11.0) 11/28/18 17:26 RBC 4.22 M/mm3 (3.65-5.03) 11/28/18 17:26 Hgb 12.4 gm/dl (10.1-14.3) 11/28/18 17:26 Hct 38.1 % (30.3-42.9) 11/28/18 17:26 MCV 90 fl (79-97) 11/28/18 17:26 MCH 29 pg (28-32) 11/28/18 17:26 MCHC 33 % (30-34) 11/28/18 17:26 RDW 13.4 % (13.2-15.2) 11/28/18 17:26 Plt Count 324 K/mm3 (140-440) 11/28/18 17:26 Lymph % (Auto) 29.5 % (13.4-35.0) 11/28/18 17:26 [place] % (Auto) 6.0 % (0.0-7.3) 11/28/18 17:26 Eos % (Auto) 0.9 % (0.0-4.3) 11/28/18 17:26 Baso % (Auto) 0.7 % (0.0-1.8) 11/28/18 17: Lymph # 1.8 K/mm3 (1.2-5.4) 11/28/18 17:26 [place] # 0.4 K/mm3 (0.0-0.8) 11/28/18 17: Eos # 0.1 K/mm3 (0.0-0.4) 11/28/18 17: Baso # 0.0 K/mm3 (0.0-0.1) 11/28/18 17:26 Seg Neutrophils % 62.9 % (40.0-70.0) 11/28/18 17: Seg Neutrophils # 3.9 K/mm3 (1.8-7.7) 11/28/18 17: PT 13.6 Sec. (12.2-14.9) 11/28/18 17: INR 1.07 (0.87-1.13) 11/28/18 17: APTT 32.7 Sec. (24.2-36.6) 11/28/18 17:26 16.8 Sec. (15.1-19.6) 11/28/18 17:26 Sodium 140 mmol/L (137-145) 11/28/18 19:02 Potassium 3.8 mmol/L (3.6-5.0) 11/28/18 19:02 Chloride 104.2 mmol/L (98-107) 11/28/18 19:02 Carbon Dioxide 20 mmol/L (22-30) L 11/28/18 19:02 20 mmol/L 11/28/18 19:02 BUN 8 mg/dL (7-17) 11/28/18 19:02 0.7 mg/dL (0.7-1.2) 11/28/18 19:02 Estimated GFR > 60 ml/min 11/28/18 19:02 11 % 11/28/18 19:02 Glucose 81 mg/dL (65-100) 11/28/18 19:02 POC Glucose 94 (70-105) 11/28/18 16:58 5.1 % (4-6) 11/29/18 01:03 Calcium 9.2 mg/dL (8.4-10.2) 11/28/18 19:02 Magnesium 2.10 mg/dL (1.7-2.3) 11/28/18 17:36 102 units/L (30-135) 11/28/18 17:36 CK-MB (CK-2) < 1.0 ng/mL (0.0-4.0) 11/28/18 17:26 CK-MB (CK-2) Rel Index 0.9 (0-4) 11/28/18 17:26 < 0.010 ng/mL (0.00-0.029) 11/28/18 17:26 Triglycerides 108 mg/dL (2-149) 11/29/18 03:12 Cholesterol 147 mg/dL (50-199) 11/29/18 03:12 89 mg/dL (50-130) 11/29/18 03:12 55 mg/dL (40-59) 11/29/18 03:12 2.67 % 11/29/18 03:12 HCG, Qual Negative (Negative) 11/28/18 17:26 Yellow (Yellow) 11/28/18 19:38 Slightly-cloudy (Clear) 11/28/18 19:38 7.0 (5.0-7.0) 11/28/18 19:38 Ur Specific [place] 1.016 (1.003-1.030) 11/28/18 19:38 <15 mg/dl mg/dL (Negative) 11/28/18 19:38 Neg mg/dL (Negative) 11/28/18 19:38 20 mg/dL (Negative) 11/28/18 19:38 Neg (Negative) 11/28/18 19:38 Neg (Negative) 11/28/18 19:38 Neg (Negative) 11/28/18 19:38 < 2.0 mg/dL (<2.0) 11/28/18 19:38 Ur Leukocyte Esterase Neg (Negative) 11/28/18 19:38 1.0 /HPF (0.0-6.0) 11/28/18 19:38 3.0 /HPF (0.0-6.0) 11/28/18 19:38 U Epithel Cells (Auto) 20.0 /HPF (0-13.0) H 11/28/18 19:38 Few /HPF 11/28/18 19:38 Active Medications - Current Medications Current Medications: Generic Name Dose Route Start Last Admin Trade Name Freq PRN Reason Stop Dose Admin Acetaminophen 650 mg 11/29/18 17:02 11/30/18 09:22 Tylenol PO 650 mg Q6HR PRN Administration Pain Aspirin 81 mg 11/29/18 10:00 11/30/18 09:33 Baby Aspirin PO 81 mg DAILY MICHELL Administration Atorvastatin Calcium 40 mg 11/29/18 22:00 11/30/18 00:21 Lipitor PO 40 mg QHS MICHELL Administration Cyclobenzaprine HCl 10 mg 11/29/18 17:00 11/29/18 16:44 Flexeril PO 10 mg TID PRN Administration Muscle Spasm Dextrose 50 ml 11/28/18 23:14 D50w (25gm) Syringe IV PRN PRN Hypoglycemia Docusate Sodium 100 mg 11/29/18 10:00 11/30/18 09:58 Colace PO 100 mg BID MICHELL Administration Enoxaparin Sodium 70 mg 11/29/18 10:00 11/30/18 09:34 Lovenox SUB-Q 70 mg BID MICHELL Administration Famotidine 10 mg 11/29/18 10:00 11/30/18 09:33 Pepcid PO 10 mg BID MICHELL Administration Fluticasone Propionate 50 mcg 11/29/18 10:00 11/30/18 09:34 Flonase NS 50 mcg DAILY MICHELL Administration Gabapentin 300 mg 11/29/18 08:00 11/30/18 08:24 Neurontin PO 300 mg TID MICHELL Administration Hydralazine HCl 10 mg 11/28/18 23:15 Apresoline IV Q4H PRN Blood Pressure Loratadine 10 mg 11/29/18 10:00 11/30/18 09:33 Claritin PO 10 mg DAILY MICHELL Administration Metformin HCl 750 mg 11/29/18 08:00 11/30/18 09:14 Glucophage PO 750 mg QDDIAB MICHELL Administration Methylprednisolone Sodium Succinate 125 mg 11/30/18 15:53 Solu-Medrol IV 11/30/18 15:54 ONCE ONE Ondansetron HCl 4 mg 11/28/18 22:57 11/29/18 19:48 Zofran IV 4 mg Q8H PRN Administration Nausea And Vomiting Sodium Chloride 10 ml 11/28/18 22:57 Sodium Chloride Flush Syringe 10 Ml IV PRN PRN LINE FLUSH Sumatriptan Succinate 50 mg 11/30/18 16:00 Imitrex PO 11/30/18 18:01 Q2H MICHELL
[2018-11-30] MEDS: ZOFRAN IV PRN (16:00)
[2018-11-30] MEDS ORDERED: SOLU-Medrol IV ONE (16:53)
[2018-11-30] MEDS: IMITREX PO SCH ×2 (17:09→19:54)
[2018-12-01] MEDS: REGLAN IV PRN ×2 (00:03→09:24)
[2018-12-01] MEDS ORDERED: REGLAN PO PRN (00:27)
[2018-12-01] MEDS: NEURONTIN PO SCH ×3 (08:15→21:58)
[2018-12-01] MEDS: GLUCOPHAGE PO SCH (08:15)
[2018-12-01] MEDS: PEPCID PO SCH ×2 (09:28→21:58)
[2018-12-01] MEDS: LOVENOX SUB-Q SCH ×2 (09:28→21:59)
[2018-12-01] MEDS: FLONASE NS SCH (09:28)
[2018-12-01] MEDS: BABY ASPIRIN PO SCH (09:28)
[2018-12-01] MEDS: CLARITIN PO SCH (09:28)
[2018-12-01] MEDS: COLACE PO SCH ×2 (09:29→21:59)
[2018-12-01] MEDS: FLEXERIL PO PRN (09:31)
--- NOTE | 2018-12-01 12:09 | Progress Note ---
Objective - Vital Sign Vital Signs - 12hr 12/01/18 12/01/18 12/01/18 03:15 07:44 10:00 Temperature 98.3 F 98.1 F Pulse Rate 89 Respiratory 16 18 18 Rate Blood Pressure 116/84 121/78 O2 Sat by Pulse 96 Oximetry - Laboratory Findings CBC and BMP: 11/28/18 17:26 11/28/18 19:02 Abnormal Lab Findings: Abnormal Labs 11/28/18 11/28/18 19:02 19:38 Carbon Dioxide 20 L U Epithel Cells (Auto) 20.0 H
--- NOTE | 2018-12-01 12:21 | Progress Note ---
Assessment and Plan Neurology progress note. Mr. oHwe was seen by me 2 days ago her symptoms of multiple cervical radiculopathy involving right C5, C6 and C7 nerve roots. I recommend MRI of the cervical spine was has since been done. Regularly reported normal MRI of the cervical spine. I rounded down to the radiology service and refilled the MRI myself and I found some disc bulge at C4 5 and C5-C6 and C6-C7 however the disc bulges mild, of course there is no herniation. Radiologist agreed that sometimes MRI minoxidil actual disc protrusion as when MRI is done patient is lying flat with her neck being straight which is not the case of neck position when patient is involved in the activities of daily living. Physical examination. Patient looks much better today are neck stiffness has responded to Flexeril 5 mg by mouth twice a day along with Tylenol 500 mg. Patient is alert and appropriate and answers questions appropriately. Other per tinent findings include weak right biceps, right triceps, and right deltoid muscles. Patient also has decreased reflexes on the right side is including right biceps, right triceps and right brachioradialis reflexes. He has decreased sensation to pinprick on the right C5, C6, and C7 dermatomes. Impression multiple cervical radiculopathies involving right C5-C6 and C7 nerve roots Plan. #1 patient was advised not to more than 10 pounds with her right upper extremity #2. Continue flexeril and tyelenol combination twice a day for few days upon discharge and then as needed. #3. The patient should get physical therapy as outpatient for few weeks to resolve her symptoms Objective - Vital Sign Vital Signs - 12hr 12/01/18 12/01/18 12/01/18 03:15 07:44 10:00 Temperature 98.3 F 98.1 F Pulse Rate 89 Respiratory 16 18 18 Rate Blood Pressure 116/84 121/78 O2 Sat by Pulse 96 Oximetry - Laboratory Findings CBC and BMP: 11/28/18 17:26 11/28/18 19:02 Abnormal Lab Findings: Abnormal Labs 11/28/18 11/28/18 19:02 19:38 Carbon Dioxide 20 L U Epithel Cells (Auto) 20.0 H
--- NOTE | 2018-12-01 13:50 | Progress Note ---
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 (tele-neurology) was consulted. Pt is not a candidate for TPA because she is outside the window of treatment. * CTA Head Brain Impression: There is no CT evidence of acute intracranial process. * CT angiogram Neck Impression: Normal CTA neck * Brain MRI without contrast IMPRESSION: Unremarkable MRI brain. * MRI c-spine without contrast Impression: No indication of disc herniation, central canal stenosis or significant neuroforaminal narrowing (Neurologist Dr. Garsia did see disc protrusion) Status Migrainous Headaches aggravated by cervical radiculopathy: treat with Imitrex + iv steroid as NSAIDs may worsen bleeding with therapeutic Lovenox Right shoulder pains, ruled out TIA/CVA, most likely cervical radiculopathy involving right C5, C6, C7: order MRI neck==>no impringement Hypertension: low salt diet, treat with antihypertensives Antiphospholipid antibody syndrome-Currently on systemic anticoagulation (Lovenox)-Continue to monitor coags Polycystic ovarian syndrome-Currently on metformin-Daily POC BG DVT PPX-sq lovenox 12/01/18: give tylenol 500mg bid, flexeril 5 mg tid, the cocktail in ED did help the best, she received reglan 10mg x 1 and benadryl 25 mg iv x 1; she usually takes Excedrin migraine at home not available here, will use Fioricet Disposition: continue inpatient care, once headaches improves then d/c home, hopefully d/c tomorrow History Interval history: Patient was seen and examined. Follow-up on current diagnosis of Migraines. No overnight events reported to me. Patient denies any chest pain, shortness breath. Imaging, nursing note, chart, labs and old chart reviewed. Discussed w ith patient. Still with severe migraine type headaches but slightly better after imitrex and iv steroids. Hospitalist Physical - Physical exam Narrative exam: Gen: WDWN, NAD, Awake, Alert, Orientated HEENT: NCAT, EOMI, PERRL, OP Clear Neck: supple, no adenopathy, no thyromegaly, no JVD CVS/Heart: RRR, normal S1S2, pulses present bilaterally Chest/Lungs: CTA B, Symmetrical chest expansion, good air entry bilaterally GI/Abdomen: soft, NTND, good bowel sounds, no guarding or rebound /Bladder: no suprapubic tenderness, no CVA or paraspinal tenderness Extermity/Skin: no c/c/e, no obvious rash Neuro: CN 2-12 grossly intact with some sensory deficits, new right sided muscle weakness, per Neurology: Cranial nerves. Normal fascial weakness, extra ocular movement is intact. Decreased sensation to pinprick. On the right V2 and V3 distribution of trigeminal nerve. Motor. Weak right deltoid, right biceps and right triceps muscles. Increased stiffness on cervical paraspinal muscles more so on the right side than the left. Muscle tone is decreased on the right upper extremity. Moses continue muscles bilaterally. Sensory. Decreased sensation to pinprick on the right C5, C6, and C7 dermatomes, Reflexes. Decreased right biceps, right triceps and right brachioradialis reflexes as compared to the left. Psych: calm - Constitutional Vitals: Temp Pulse Resp BP Pulse Ox 98.1 F 89 18 121/78 96 12/01/18 07:44 12/01/18 03:15 12/01/18 10:00 12/01/18 07:44 12/01/18 03:15 Results - Labs CBC & Chem 7: 11/28/18 17:26 11/28/18 19:02 Labs: Laboratory Last Values WBC 6.3 K/mm3 (4.5-11.0) 11/28/18 17:26 RBC 4.22 M/mm3 (3.65-5.03) 11/28/18 17:26 Hgb 12.4 gm/dl (10.1-14.3) 11/28/18 17:26 Hct 38.1 % (30.3-42.9) 11/28/18 17:26 MCV 90 fl (79-97) 11/28/18 17:26 MCH 29 pg (28-32) 11/28/18 17: MCHC 33 % (30-34) 11/28/18 17: RDW 13.4 % (13.2-15.2) 11/28/18 17:26 Plt Count 324 K/mm3 (140-440) 11/28/18 17:26 Lymph % (Auto) 29.5 % (13.4-35.0) 11/28/18 17: [place] % (Auto) 6.0 % (0.0-7.3) 11/28/18 17: Eos % (Auto) 0.9 % (0.0-4.3) 11/28/18 17: Baso % (Auto) 0.7 % (0.0-1.8) 11/28/18 17: Lymph # 1.8 K/mm3 (1.2-5.4) 11/28/18 17: Andrew # 0.4 K/mm3 (0.0-0.8) 11/28/18 17: Eos # 0.1 K/mm3 (0.0-0.4) 11/28/18 17: Baso # 0.0 K/mm3 (0.0-0.1) 11/28/18 17: Seg Neutrophils % 62.9 % (40.0-70.0) 11/28/18 17: Seg Neutrophils # 3.9 K/mm3 (1.8-7.7) 11/28/18 17: PT 13.6 Sec. (12.2-14.9) 11/28/18 17: INR 1.07 (0.87-1.13) 11/28/18 17: APTT 32.7 Sec. (24.2-36.6) 11/28/18 17:26 16.8 Sec. (15.1-19.6) 11/28/18 17:26 Sodium 140 mmol/L (137-145) 11/28/18 19:02 Potassium 3.8 mmol/L (3.6-5.0) 11/28/18 19: Chloride 104.2 mmol/L (98-107) 11/28/18 19:02 Carbon Dioxide 20 mmol/L (22-30) L 11/28/18 19:02 20 mmol/L 11/28/18 19:02 BUN 8 mg/dL (7-17) 11/28/18 19:02 0.7 mg/dL (0.7-1.2) 11/28/18 19:02 Estimated GFR > 60 ml/min 11/28/18 19:02 11 % 11/28/18 19:02 Glucose 81 mg/dL (65-100) 11/28/18 19:02 POC Glucose 94 (70-105) 11/28/18 16:58 5.1 % (4-6) 11/29/18 01:03 Calcium 9.2 mg/dL (8.4-10.2) 11/28/18 19:02 Magnesium 2.10 mg/dL (1.7-2.3) 11/28/18 17:36 102 units/L (30-135) 11/28/18 17:36 CK-MB (CK-2) < 1.0 ng/mL (0.0-4.0) 11/28/18 17:26 CK-MB (CK-2) Rel Index 0.9 (0-4) 11/28/18 17:26 < 0.010 ng/mL (0.00-0.029) 11/28/18 17:26 Triglycerides 108 mg/dL (2-149) 11/29/18 03:12 Cholesterol 147 mg/dL (50-199) 11/29/18 03:12 89 mg/dL (50-130) 11/29/18 03:12 55 mg/dL (40-59) 11/29/18 03:12 2.67 % 11/29/18 03:12 HCG, Qual Negative (Negative) 11/28/18 17:26 Yellow (Yellow) 11/28/18 19:38 Slightly-cloudy (Clear) 11/28/18 19:38 7.0 (5.0-7.0) 11/28/18 19:38 Ur Specific [place] 1.016 (1.003-1.030) 11/28/18 19:38 <15 mg/dl mg/dL (Negative) 11/28/18 19:38 Neg mg/dL (Negative) 11/28/18 19:38 20 mg/dL (Negative) 11/28/18 19:38 Neg (Negative) 11/28/18 19:38 Neg (Negative) 11/28/18 19:38 Neg (Negative) 11/28/18 19:38 < 2.0 mg/dL (<2.0) 11/28/18 19:38 Ur Leukocyte Esterase Neg (Negative) 11/28/18 19:38 1.0 /HPF (0.0-6.0) 11/28/18 19:38 3.0 /HPF (0.0-6.0) 11/28/18 19:38 U Epithel Cells (Auto) 20.0 /HPF (0-13.0) H 11/28/18 19:38 Few /HPF 11/28/18 19:38 Active Medications - Current Medications Current Medications: Generic Name Dose Route Start Last Admin Trade Name Freq PRN Reason Stop Dose Admin Acetaminophen 500 mg 12/01/18 14:00 Tylenol PO BID [facility] Aspirin 81 mg 11/29/18 10:00 12/01/18 09:28 Baby Aspirin PO 81 mg DAILY MICHELL Administration Atorvastatin Calcium 40 mg 11/29/18 22:00 11/30/18 21:46 Lipitor PO 40 mg QHS MICHELL Administration Cyclobenzaprine HCl 5 mg 12/01/18 14:00 Flexeril PO TID [facility] Dextrose 50 ml 11/28/18 23:14 D50w (25gm) Syringe IV PRN PRN Hypoglycemia Diphenhydramine HCl 25 mg 12/01/18 13:42 Benadryl IV 12/01/18 13:43 ONCE ONE Docusate Sodium 100 mg 11/29/18 10:00 12/01/18 09:29 Colace PO 100 mg BID MICHELL Administration Enoxaparin Sodium 70 mg 11/29/18 10:00 12/01/18 09:28 Lovenox SUB-Q 70 mg BID MICHELL Administration Famotidine 10 mg 11/29/18 10:00 12/01/18 09:28 Pepcid PO 10 mg BID MICHELL Administration Fluticasone Propionate 50 mcg 11/29/18 10:00 12/01/18 09:28 Flonase NS 50 mcg DAILY MICHELL Administration Gabapentin 300 mg 11/29/18 08:00 12/01/18 08:15 Neurontin PO 300 mg TID MICHELL Administration Hydralazine HCl 10 mg 11/28/18 23:15 Apresoline IV Q4H PRN Blood Pressure Loratadine 10 mg 11/29/18 10:00 12/01/18 09:28 Claritin PO 10 mg DAILY MICHELL Administration Metformin HCl 750 mg 11/29/18 08:00 08/15/19 08:15 Glucophage PO 750 mg QDDIAB MICHELL Administration Metoclopramide HCl 10 mg 12/01/18 13:42 Reglan IV 12/01/18 13:43 ONCE ONE Ondansetron HCl 4 mg 11/28/18 22:57 11/30/18 16:00 Zofran IV 4 mg Q8H PRN Administration Nausea And Vomiting Sodium Chloride 10 ml 11/28/18 22:57 Sodium Chloride Flush Syringe 10 Ml IV PRN PRN LINE FLUSH
[2018-12-01] MEDS ORDERED: REGLAN IV ONE (14:00)
[2018-12-01] MEDS ORDERED: BENADRYL IV ONE (14:00)
[2018-12-01] MEDS ORDERED: FIORICET PO ONE (14:49)
[2018-12-01] MEDS: FLEXERIL PO SCH ×2 (15:09→21:59)
[2018-12-01] MEDS: TYLENOL PO SCH (18:35)
[2018-12-02] MEDS: TYLENOL PO SCH ×3 (00:37→12:10)
[2018-12-02] MEDS: GLUCOPHAGE PO SCH (08:22)
[2018-12-02] MEDS: FLEXERIL PO SCH ×2 (08:22→14:03)
[2018-12-02] MEDS: NEURONTIN PO SCH ×2 (08:23→14:03)
[2018-12-02] MEDS: BABY ASPIRIN PO SCH (09:41)
[2018-12-02] MEDS: COLACE PO SCH (09:41)
[2018-12-02] MEDS: CLARITIN PO SCH (09:41)
[2018-12-02] MEDS: LOVENOX SUB-Q SCH (09:41)
[2018-12-02] MEDS: PEPCID PO SCH (09:41)
[2018-12-02] MEDS: FLONASE NS SCH (10:51)
[2018-12-02 16:01] VITALS: BP 116/79
--- NOTE | 2018-12-02 16:15 | Discharge Summary ---
Providers - Providers Date of Admission: 11/28/18 22:14 Date of discharge: 12/02/18 Attending physician: APRIL MCMANUS 11/28/18 Consult to Physician [CONS] Routine Comment: Consulting Provider: DEJON RUSH Physician Instructions: Reason For Exam: TIA?? 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 (tele-neurology) was consulted. Pt is not a candidate for TPA because she is outside the window of treatment. * CTA Head Brain Impression: There is no CT evidence of acute intracranial process. * CT angiogram Neck Impression: Normal CTA neck * Brain MRI without contrast IMPRESSION: Unremarkable MRI brain. * MRI c-spine without contrast Impression: No indication of disc herniation, central canal stenosis or significant neuroforaminal narrowing (Neurologist Dr. Rush did see disc protrusion) Discharge Diagnoses: Status Migrainosus Headaches aggravated by cervical radiculopathy: treat with Imitrex + iv steroid as NSAIDs may worsen bleeding with therapeutic Lovenox Right shoulder pains, ruled out TIA/CVA, most likely cervical radiculopathy involving right C5, C6, C7: order MRI neck==>no impringement Hypertension: low salt diet, treat with antihypertensives Antiphospholipid antibody syndrome-Currently on systemic anticoagulation (Lovenox)-Continue to monitor coags Polycystic ovarian syndrome-Currently on metformin-Daily POC BG SLE: refill plaquenil as Rheumatology appointment is coming up DVT PPX-sq lovenox 12/01/18: give tylenol 500mg bid, flexeril 5 mg tid, the cocktail in ED did help the best, she received reglan 10mg x 1 and benadryl 25 mg iv x 1; she usually takes Excedrin migraine at home not available here, will use Fioricet Disposition: continue inpatient care, once headaches improves then d/c home, hopefully d/c tomorrow 12/02/18: the cocktail worked, headaches and nausea are much better due especially to the fioricet. She would like a script for fioricet, gabapentin and plaquenil. Disposition: DC-01 TO HOME OR SELFCARE Time spent for discharge: 40 minutes Core Measure Documentation - Palliative Care Palliative Care/ Comfort Measures: Not Applicable - Core Measures Any of the following diagnoses?: none - VTE Discharge Requirements Deep Vein Thrombosis/Pulmonary Embolism Present on Admission: No Has pt received <5 days of overlap therapy or INR<2.0: No Anticoagulant overlap therapy prescribed at discharge: No Contraindication No Overlap Therapy order at DC: Not Indicated Exam - Physical Exam Narrative exam: Gen: WDWN, NAD, Awake, Alert, Orientated HEENT: NCAT, EOMI, PERRL, OP Clear Neck: supple, no adenopathy, no thyromegaly, no JVD CVS/Heart: RRR, normal S1S2, pulses present bilaterally Chest/Lungs: CTA B, Symmetrical chest expansion, good air entry bilaterally GI/Abdomen: soft, NTND, good bowel sounds, no guarding or rebound /Bladder: no suprapubic tenderness, no CVA or paraspinal tenderness Extermity/Skin: no c/c/e, no obvious rash Neuro: CN 2-12 grossly intact with some sensory deficits, no new deficits, left hemiparesis old Psych: calm - Constitutional Vitals: Temp Pulse Resp BP Pulse Ox 98.8 F 83 18 116/79 97 12/02/18 15:59 12/02/18 15:59 12/02/18 15:59 12/02/18 15:59 12/02/18 15:59 Plan Activity: other (no strenous activity unless cleared by PCP) Diet: regular Follow up with: THOM CAPELLAN MD [Staff Physician] - 7 Days Prescriptions: Butalb/Acetamin/Caff 50-325-40 [Fioricet 50-325-40] 1 each PO Q4H PRN #24 tablet PRN Reason: Migraine Headache Gabapentin 300 mg PO TID #90 Hydroxychloroquine [Plaquenil] 400 mg PO QDAY #30 tablet
== END 2018-12-02 18:13 | disposition home or self-care (01) | DRG 74 ==
LOC: ED 16:44 → 4A 22:14
PROVIDERS: ADMIT Internal Medicine; ATTEND Internal Medicine
DX: M54.12 Radiculopathy, cervical region (principal); I10 Essential (primary) hypertension; G43.101 Migraine with aura, not intractable, with status migrainosus; D68.61 Antiphospholipid syndrome; E28.2 Polycystic ovarian syndrome; M32.9 Systemic lupus erythematosus, unspecified; R20.0 Anesthesia of skin; H53.149 Visual discomfort, unspecified; I69.354 Hemiplegia and hemiparesis following cerebral infarction affecting left non-dominant side; Z79.01 Long term (current) use of anticoagulants; Z88.1 Allergy status to other antibiotic agents; Z88.5 Allergy status to narcotic agent; Z91.010 Allergy to peanuts; Z91.013 Allergy to seafood; Z79.82 Long term (current) use of aspirin; Z79.899 Other long term (current) drug therapy
CPT/HCPCS: 36415; 70450; 70496; 70498; 70551; 72141; 80048; 80061; 81001; 82550; 82553; 82962; 83036; 83735; 84484; 84703; 85025; 85610; 85670; 85730; 93005; 93010; 93306; 96374; 96375; G0378; A9270-GY; J1200; J1650; J2270; J2405; J2765; J2930; J7030; J7040; Q9967